=== PATIENT | female | born 1955 | race Caucasian/White ===

== ENCOUNTER 2021-01-29 14:23 | Emergency (ER) | payer OTHER, SELFPAY ==
--- NOTE | ~2021-01-29 | CT_ITS ---
EXAMINATION: CT CERVICAL SPINE WITHOUT CONTRAST CLINICAL INFORMATION: Fall. Head and neck trauma. COMPARISON: None TECHNIQUE: Axial images through the cervical spine without contrast. Sagittal and coronal reconstructions on the technologist workstation were performed. This CT examination was performed using dose optimization techniques as appropriate, variously including the following: *Automated exposure control *Adjustment of mA and/or kV according to patient size (this includes techniques or standardized protocols for targeted exams where dose is matched to indication/reason for exam; i.e. extremities or head) *Use of iterative reconstruction technique DLP: 572 mGy-cm FINDINGS: Bone alignment is normal. No fracture or dislocation is seen. There is degenerative spondylosis and degenerative disc disease from C4-C5 to C6-C7. There is bilateral multilevel facet arthritis. There are degenerative changes at the C1 dens articulation. Prevertebral soft tissues are normal. The lung apices are clear. CT/CT cervical spine wo con IMPRESSION: Degenerative changes. No fracture or dislocation seen.
--- NOTE | ~2021-01-29 | XR_ITS ---
EXAMINATION: XR KNEE, LEFT CLINICAL INFORMATION: Trauma, pain and swelling COMPARISON: None TECHNIQUE: 6 views of the left knee. FINDINGS: There is a soft tissue contusion with swelling and increased attenuation involving the anterior medial soft tissues at least 6 cm in length. There is no fracture, dislocation, or suprapatellar effusion. No focal joint narrowing or erosive changes. There is spurring at the quadriceps insertion patella. Hoffa's fat pad is unremarkable. XR/XR knee LT 3V IMPRESSION: 1. Superficial anteromedial soft tissue contusion. 2. No fracture, dislocation, or suprapatellar effusion.
--- NOTE | ~2021-01-29 | CT_ITS ---
EXAMINATION: CT HEAD WITHOUT CONTRAST CLINICAL INFORMATION: Head trauma to left religious COMPARISON: None TECHNIQUE: Contiguous axial imaging was performed from the skull base to vertex without intravenous administration of contrast. This CT examination was performed using dose optimization techniques as appropriate, variously including the following: *Automated exposure control *Adjustment of mA and/or kV according to patient size (this includes techniques or standardized protocols for targeted exams where dose is matched to indication/reason for exam; i.e. extremities or head) *Use of iterative reconstruction technique DLP: 667 mGy-cm FINDINGS: There is no evidence of an extra-axial collection. There is no evidence of intra-axial or extra-axial hemorrhage. The ventricles and extra-axial CSF spaces are slightly prominent suggestive of mild generalized atrophy. There is nonspecific periventricular white matter disease. There is an old right basal ganglia lacunar infarct. No mass, mass effect or acute infarct is seen. No skull fracture is seen. Visualized paranasal sinuses, mastoid air cells and middle ears are clear. CT/CT head/brain wo con IMPRESSION: No acute findings. Mild generalized atrophy and nonspecific periventricular white matter disease. Old right basal ganglia lacunar infarct.
[2021-01-29 14:28] VITALS: BP 151/80; PULSE 80; O2SAT 99
[2021-01-29 14:31] VITALS: BP 145/12; PULSE 75; RESP 17; TEMP 36.7; O2SAT 100; BMI 34.9
[2021-01-29] MEDS: oxyCODONE HCl Immed Release 5 MG TABLET 10 MG PO (15:03)
--- NOTE | 2021-01-29 15:17 | ED.FALL ---
HPI - Fall General Chief Complaint: Fall Stated Complaint: left knee injury Time Seen by Provider: 01/29/21 14:35 Source: patient Mode of arrival: EMS Limitations: no limitations History of Present Illness HPI Narrative: 65-year-old female who fell onto her right knee and struck her head when she missed a concrete step outside today. No loss of consciousness This was a mechanical fall, no chest pain, shortness of breath, dizziness, or lightheadedness prior to fall. No headache, no blurred vision, no neck pain, patient endorses left knee pain, painful to weight bear. MD complaint: fall Onset (ago): hour(s) (3) Fall from: standing Place fall occurred: street Loss of consciousness: none Symptoms prior to fall: none Context: tripped/slipped Location of injury - extremities: left: knee Severity: moderate Severity scale (1-10): 10 Quality: aching Related Data Previous Rx's Medication Instructions Recorded naproxen 500 mg tablet 500 mg PO BID 10 Days #20 tab 01/29/21 Allergies Allergy/AdvReac Type Severity Reaction Status Date / Time No Known Allergies Allergy Verified 01/29/21 14:36 Review of Systems Review of Systems: Constitutional : No Weight loss, No Fever, No Chills, No Night Sweats,No Fatigue, No Malaise ENT/Mouth : No Hearing loss, No Ear Pain, No Nasal Congestion, NoSinus Pain, No Hoarseness, No sore throat, No Rhinorrhea, NoSwallowing Difficulty Eyes: No Eye Pain, No Swelling, No Redness, No Foreign Body, NoDischarge, No Vision Changes Cardiovascular : No Chest Pain, No SOB, No Dyspnea on Exertion, NoOrthopnea, No Edema, No Palpitations Respiratory : No Cough, No Sputum, No Wheezing, No Smoke Exposure, No Dyspnea Gastrointestinal : No Nausea, No Vomiting, No Diarrhea, NoConstipation, No abdominal Pain, No Hematochezia, No Melena Genitourinary : no irregular bleeding, No Dysuria, No UrinaryFrequency, No Hematuria, No Urinary Incontinence, No Urgency, No FlankPain, No Urinary Flow Changes, No Hesitancy Musculoskeletal :left knee swelling and reduced ROM Skin : bruising left knee, brusing left temporal region Neuro : No Weakness, No Numbness, No Paresthesias, No Loss ofConsciousness, No Dizziness, No Headache PMFSH Past Medical History Medical History (Updated 01/29/21 @ 16:43 by JOAQUINA Guthrie) Depression Sleep apnea Social History Social History Advance Directives: No Physical Exam Vital Signs: Vital Signs: Last Vital Signs Temp 98.0 F 01/29/21 14:31 Pulse 75 01/29/21 14:31 Resp 17 01/29/21 15:44 BP 145/12 H 01/29/21 14:31 Pulse Ox 100 01/29/21 14:31 Body Mass Index 34.9 Const: General: cooperative, no acute distress, well developed, alert and awake Nutritional Appearance: well nourished Orientation/consciousness: patient oriented x3 Limitations: no limitations HENMT: Head: Yes normal to inspection, Yes normocephalic and Yes atraumatic Ears: hearing grossly normal bilaterally, external ears normal, TM's normal bilaterally and EAC's normal General nose exam: Normal external nose present Face and sinus: Yes normal facial exam and Yes sinuses nontender Mouth: Normal oral and palatal mucosa present Throat: Yes posterior oropharynx normal Eyes: Conjunctivae: conjunctivae normal Pupils: Equal, round and reactive pupils present EOM: EOMs intact bilaterally Neck: Neck: Yes full ROM, Yes no lymphadenopathy and Yes supple Resp: Effort & Inspection: normal respiratory effort and able to speak in complete sentences Auscultation: clear to auscultation bilaterally, no crackles, no rales, no rhonchi and no wheezes Cardio: Rate: regular rate Rhythm: regular rhythm Heart sounds: S1 normal heart sound present and S2 normal heart sound present GI: Inspection: Yes normal to inspection Palpation (GI): Soft to palpation, nontender, no guarding and not rigid Percussion: Yes normal to percussion Auscultation: normal bowel sounds Skin: Other: Ecchymosis left confucianism, ecchymosis anterior left knee Neuro: General: patient oriented x3, tone normal and moves all extremities Cranial nerves: Yes Equal, round and reactive pupils present Extrem: Left lower extremity: normal capillary refill and knee Details: tenderness Location: of the pre-patellar area, swelling, abnormal ROM Details: pain with active ROM Details: with flexion and pain with passive ROM Details: with flexion, knee ligament exam normal and ecchymosis knee anterior ; Negative for no crepitus, no deformity and no unusual warmth; No no cyanosis and no edema Psych: Appearance: grossly normal Affect: normal affect Attitude: cooperative Thought process: Normal thought process present Course Course Course Narrative: 65-year-old female with a mechanical fall onto left knee and left head strike. CT neck shows arthritic changes, CT head shows no acute intracranial pathology but does show old lacunar infarct. XR knee shows: 1. Superficial anteromedial soft tissue contusion. 2. No fracture, dislocation, or suprapatellar effusion. Patient is neurologically intact, she has intact left lower extremity pulses, sensation, and motor strength. Range of motion is limited due to pain. Patient fitted with knee immobilizer, crutches, prescribed naproxen, follow-up with Orthopedics, follow up with primary care provider for further investigation of old lacunar infarct. Patient's daughter was by bedside, all questions were answered. ? Discharge Plan Discharge Clinical Impression: History of lacunar cerebrovascular accident (CVA) Contusion Qualifiers: Encounter type: initial encounter Contusion area: knee Laterality: left Qualified Code(s): S80.02XA - Contusion of left knee, initial encounter Patient Disposition: Home, Self-Care Instructions: Contusion in Adults (ED), R.I.C.E. Treatment (ED) Additional Instructions: Your head CT shows Old right basal ganglia lacunar infarct. Please take 1 baby aspirin a day and call your primary care provider to discuss further testing. Please rest, ice, and elevate your left knee. Please stay out of work until Orthopedics releases you. Only weight bear if it is not painful otherwise use your crutches. If you do not hear from Orthopedics by the end of the day Monday, please call them. Please fill your prescription for naproxen that I have sent to your pharmacy. Do not take any ibuprofen are ibuprofen containing products while you are on naproxen. Prescriptions: New naproxen 500 mg tablet 500 mg PO BID 10 Days Qty: 20 RF: 0 Referrals: Tony Christianson MD [Physician] - 2 days (left knee injury) Stand Alone Forms: Work/School Release
[2021-01-29 15:44] VITALS: RESP 17
== END 2021-01-29 17:27 | disposition home or self-care (01) ==
PROVIDERS: Emergency Provider Emergency Medicine; PCP Nurse Practitioner Adult Health
DX: S80.02XA Contusion of left knee, initial encounter (principal); M25.562 Pain in left knee; M54.2 Cervicalgia; G44.309 Post-traumatic headache, unspecified, not intractable; W01.0XXA Fall on same level from slipping, tripping and stumbling without subsequent striking against object, initial encounter; Y93.9 Activity, unspecified; Y92.9 Unspecified place or not applicable; Y99.9 Unspecified external cause status; Z86.73 Personal history of transient ischemic attack (TIA), and cerebral infarction without residual deficits; Z79.899 Other long term (current) drug therapy
CPT/HCPCS: 70450; 72125; 73562; 99284